=== PATIENT | male | born 1950 | race Caucasian/White ===

== ENCOUNTER 2019-10-07 07:53 | Inpatient (IN) | payer BC, MEDICARE, OTHER ==
[2019-10-07] MEDS ORDERED: Acetaminophen 325 MG TAB ONE (08:18)
[2019-10-07] MEDS ORDERED: cefTRIAXone\\ROCEPHIN 2 GM VIAL ONE (08:18)
[2019-10-07 08:19] LABS: #Basophils 0.3 thou/uL (0.0-0.2); #Monocytes 0.2 thou/uL (0.11-0.59); #Neutrophils 9.2 thou/uL (1.40-6.50); %Basophils 2.4 % (0.0-1.0); %Eosinophils 0.1 % (0.0-10.0); %Lymphocytes 9.4 % (21.0-51.0); %Monocytes 2.1 % (0.0-10.0); Mean Corpuscular HGB CONC 33.8 g/dL (32.0-36.0); Mean Corpuscular Hemoglobin 33.6 pg (27.0-31.0); Mean Corpuscular Volume 99.4 fL (78.0-98.0); Mean Platelet Volume 7.3 fL (7.4-10.4); Platelet Count 159 thou/uL (130-400); Red Blood Cell (RBC) Count 4.16 mill/uL (4.70-6.10); White Blood Cell (WBC) Count 10.7 thou/uL (4.8-10.8)
[2019-10-07 08:35] LABS: ALT (SGPT) 12 U/L (8-55); AST (SGOT) 13 U/L (5-34); Albumin 3.4 g/dL (3.4-4.8); Alkaline Phosphatase 79 U/L (40-110); Anion Gap 14 mmol/L (10-20); BUN (Urea Nitrogen) 22 mg/dL (8.4-25.7); Bilirubin, Total 1.8 mg/dL (0.2-1.2); Calc. Creatinine Clearance 0 mL/min (70-130); Calcium 8.1 mg/dL (7.8-10.44); Carbon Dioxide 21 mmol/L (23-31); Chloride 103 mmol/L (98-107); Estimated GFR-MDRD 80; Globulin 3.1 g/dL (2.4-3.5); Glucose 134 mg/dL (83-110); Potassium 3.5 mmol/L (3.5-5.1); Protein, Total 6.5 g/dL (5.8-8.1); Sodium 134 mmol/L (136-145)
--- NOTE | 2019-10-07 08:49 | RAD ---
Exam: Chest one view HISTORY:Fever. Urinary tract infection. Comparison: None FINDINGS: Pacemaker: Left-sided 3-lead defibrillator with lead positioned over the right atrium, right ventricl e and coronary sinus. Sternotomy wires are noted. Cardiac silhouette: Normal Aorta: Unremarkable Pulmonary vessels: Normal Costophrenic angles: Clear LUNGS: No masses or consolidation. Pneumothorax: None Osseous abnormalities: None IMPRESSION: No acute cardiopulmonary process.
[2019-10-07 08:52] LABS: Bilirubin Negative (Negative); Blood, Urine 3+ (Negative); Clarity Extra Turbid (Clear); Glucose, Urine (Dipstick) 500 mg/dL (Negative); Leukocyte 500 Leu/uL (Negative); Nitrite Negative (Negative); Protein, Urine (Dipstick) 100 mg/dL (Neg-Trace); RBC/HPF Greater than 50 HPF (0-3); Urobilinogen 6 mg/dL (Less than 2); WBC/HPF Greater than 50 HPF (0-3)
[2019-10-07 09:00] LABS: Squamous Epithelial 0-3 HPF (0-3)
[2019-10-07 09:01] LABS: Bacteria/HPF Rare-Few HPF (None Seen)
--- NOTE | 2019-10-07 10:07 | PDOC.FPRHP ---
- History of Present Illness Chief Complaint: Fever History of Present Illness: 69yo male with pmh of CVA with residual left sided weakness, IDDMII, HTN, HLD presents with fever, hyperglycemia, vomiting, dizziness, AMS since last night. Pt is accompanied by his son. Fever and dysuria started 1 wk ago. "Home doctor" came to his last night and diagnosed him with UTI and was started on Cipro. Hasn 't been taking a lot of his medications due to not feeling well and vomiting. Did receive insulin last night. Started as a "head cold" last week. Not on O2 at home but requiring O2 on here in ED. Lives alone, able to drive at baseline. More lethargic since yesterday. ED Course: Recieved 30ml/kg bolus, Ceftriaxone, Vanc, Tylenol EMS: 300ml bolus, and 8mg Zofran - Allergies/Adverse Reactions Allergies Allergy/AdvReac Type Severity Reaction Status Date / Time No Known Allergies Allergy Unverified 10/07/19 12:25 - History PMHx: CVA- residual left sided weakness, CHF, CABG, Insulin dependent DM, HLD PSHx: Cholecystectomy, 3v CABG FHx: Noncontributory Social: Denies alcohol, drug, tobacco use. Lives alone. - Review of Systems General: reports: fever/chills, weight/appetite/sleep changes, night sweats ENT: reports: nasal congestion, rhinorrhea Respiratory: reports: cough, congestion. denies: shortness of breath Cardiovascular: denies: chest pain Gastrointestinal: reports: nausea, vomiting. denies: diarrhea, abdominal pain Genitourinary: reports: dysuria Skin: denies: rashes, lesions Neurological: reports: weakness - Vital signs BP: Initially 60's/40's. Currently 135/79 HR: 107 RR: 21 Tmax: 103.7 Pox: 99% on 0.5L Wt: 73kg - Physical Exam Constitutional: NAD, well developed -Constitutional: lethargic but able to answer questions HEENT: normocephalic and atraumatic, PERRLA, conjunctiva clear, no scleral icterus, oropharynx clear -HEENT: Dry MM Neck: trachea midline Heart: RRR, no murmurs/rubs/gallops Lungs: CTAB, no respiratory distress, good air movement Abdomen: soft, non-tender -Abdomen: No CVA tenderness Rectal exam normal. No tenderness with palpation of prostate Musculoskeletal: normal structure, normal tone Neurological: no focal deficit Skin: no rash/lesions Heme/Lymphatic: no unusual bruising or bleeding Psychiatric: normal mood and affect, good judgment and insight, intact recent and remote memory FMR H&P: Results - Labs Result Diagrams: 10/07/19 07:50 10/07/19 07:50 Lab results: WBC 10.7 thou/uL (4.8-10.8) 10/07/19 07:50 Hgb 14.0 g/dL (14.0-18.0) 10/07/19 07:50 Hct 41.4 % (42.0-52.0) L 10/07/19 07:50 MCV 99.4 fL (78.0-98.0) H 10/07/19 07:50 Plt Count 159 thou/uL (130-400) 10/07/19 07:50 Neutrophils % 86.0 % (42.0-75.0) H 10/07/19 07:50 Sodium 134 mmol/L (136-145) L 10/07/19 07:50 Potassium 3.5 mmol/L (3.5-5.1) 10/07/19 07:50 Chloride 103 mmol/L (98-107) 10/07/19 07:50 Carbon Dioxide 21 mmol/L (23-31) L 10/07/19 07:50 BUN 22 mg/dL (8.4-25.7) 10/07/19 07:50 Creatinine 0.93 mg/dL (0.7-1.3) 10/07/19 07:50 Glucose 134 mg/dL (83-110) H 10/07/19 07:50 Lactic Acid 3.7 mmol/L (0.5-2.2) H 10/07/19 07:50 Calcium 8.1 mg/dL (7.8-10.44) 10/07/19 07:50 Total Bilirubin 1.8 mg/dL (0.2-1.2) H 10/07/19 07:50 AST 13 U/L (5-34) 10/07/19 07:50 ALT 12 U/L (8-55) 10/07/19 07:50 Alkaline Phosphatase 79 U/L (40-110) 10/07/19 07:50 Serum Total Protein 6.5 g/dL (5.8-8.1) 10/07/19 07:50 Albumin 3.4 g/dL (3.4-4.8) 10/07/19 07:50 Urine Ketones Negative mg/dL (Negative) 10/07/19 08:25 Urine Blood 3+ (Negative) A 10/07/19 08:25 Urine Nitrite Negative (Negative) 10/07/19 08:25 Ur Leukocyte Esterase 500 Matias/uL (Negative) A 10/07/19 08:25 Urine RBC Greater than 50 HPF (0-3) A 10/07/19 08:25 Urine WBC Greater than 50 HPF (0-3) A 10/07/19 08:25 Ur Squamous Epith Cells 0-3 HPF (0-3) 10/07/19 08:25 Urine Bacteria Rare-Few HPF (None Seen) 10/07/19 08:25 - Radiology Interpretation Chest x-ray Status: report reviewed by me Additional comment: No acute cardiopulm process CT scan - head Status: report reviewed by me Additional comment: No evidence of acute intracranial process FMR H&P: A/P - Plan 69yo male admitted for septic shock 2/2 UTI Septic Shock 2/2 UTI - Diagnosed with UTI yesterday and started on Cipro. Tmax 103.7. L, tachycardic , hypotensive. - s/p 30mg/kg bolus in ED - Blood and urine cx pending - Procal ordered - Ordered another 500ml as dry MM - Consulted Pulm, Dr Pearson and Gen surg Dr Raya for central line placement. Attempts at Left IJ and Femoral unsuccessful in ED. - S/p Vanc and Ceftriaxone in ED. Will continue Ceftriaxone and Levaquin - Admit to ICU Elevated Lactate - 3.7, ordered recheck H/o CVA with residual left sided weakness - PT/OT consulted CHF - Continue statin. Hold antihypertensives - Daily wt and strict I&O CABG x3v - Continue home meds. Hold antihypertensives DMII - Continue home insulin - Accuchecks q4h until no longer NPO. Hypoglycemic protocol HLD - Continue home meds Code Status: DNR DVT ppx: Xarelto GI ppx: Pepcid BID Lines: pending Gen surg to place central line IVF: LR @100 PCP: JODY STEVEN FMR H&P: Upper Level - Plan Date/Time: 10/07/19 1002 I, [], have evaluated this patient and agree with findings/plan as outlined by planner internship resident. Pertinent changes/additions are listed here.
--- NOTE | 2019-10-07 10:07 | CT ---
CT BRAIN WITHOUT CONTRAST: Date: 10/07/2019 HISTORY: Altered mental status. COMPARISON: None. FINDINGS: There are changes of cortical atrophy, chronic small vessel ischemic disease, and encephalomalacia in the cerebral hemispheres bilaterally, likely due to remote insult. The ventricular size is appropriate and the basilar cisterns are patent. No evidence of acute infarct, hemorrhage, midline shift, or abnormal extra-axial fluid collections ar e seen. The bony calvarium is intact. There is mucosal disease in the paranasal sinuses. There are sm all air fluid levels in the maxillary sinuses. IMPRESSION: No CT evidence of acute intracranial process. POS: OFF
[2019-10-07] MEDS ORDERED: Norepinephrine 8 MG/0.9% NS 250 ML ONE (10:11)
--- NOTE | 2019-10-07 12:02 | PDOC.OP ---
Operative Note - Operative Note Operative Note: INDICATION: Septic Shock RESIDENT: Megha Sandhu MD PGY-2 ATTENDING PHYSICIAN: Dr Grissom Ultrasound Used: Yes CONSENT: Due to emergent nature only oral consent was obtained prior to procedure. PROCEDURE SUMMARY: Surgical cap, mask with protective eyewear, sterile gown and sterile gloves were worn throughout the procedure. The patient was placed in Trendelenburg position. LEFT chest region was prepped using chlorhexidine scrub and draped in sterile fashion using a full drape and sterile probe cover employed. The medial and lateral heads of the sternocleidomastoid muscle were identified as was the carotid pulse. The Internal Jugular vein was identified using the ultrasound. Anesthesia was achieved over the vein using 1% lidocaine. Using real-time out of plane guidance , the introducer needle was inserted into the Internal Jugular vein under direct ultrasound visualization. Venous blood was withdrawn. The syringe was removed and a guidewire was advanced into the introducer needle however it was unable to pass smoothly. Despite multiple attempts at passing the guidewire this was unsuccessful and procedure was terminated. Estimated blood loss is 20ml. The LEFT inguinal region was prepped using chlorhexidine scrub and draped in sterile fashion using a full drape and sterile probe cover employed. The femoral pulse was identified. Anesthesia was achieved using 1% lidocaine. Palpating the femoral pulse throughout the procedure, the introducer needle was inserted medial to the femoral artery, inferior to the inguinal crease and into the femoral vein. Venous blood was withdrawn. The syringe was removed and a guidewire was unable to pass smoothly. Several more attempts were made with the same result. Procedure was terminated. Patient tolerated procedure well. Estimated blood loss is 40ml. Surgery was consulted for central line placement.
[2019-10-07 12:44] LABS: Lactic Acid 1.2 mmol/L (0.5-2.2)
--- NOTE | 2019-10-07 13:22 | RAD ---
CHEST 1 VIEW: Date: 10/07/2019 HISTORY: Central line catheter placement. COMPARISON: 10/07/2019. FINDINGS: Postop midline sternotomy and left ICD. Right subclavian catheter has been placed. No pneumothorax or pleural effusion. IMPRESSION: Right subclavian catheter placement in satisfactory location without complication. POS: TPC
[2019-10-07] MEDS ORDERED: Dextrose 50% Abboject 50 ML SYRINGE SLOW IVP PRN (13:39)
[2019-10-07] MEDS ORDERED: Dextrose 5% in Water 1,000 ML IV PRN (13:39)
[2019-10-07] MEDS ORDERED: CCU Electrolyte Replacement 1 EACH IVPB ONE (13:39)
[2019-10-07] MEDS ORDERED: Norepinephrine 8 MG/0.9% NS 250 ML IVPB PRN (13:39)
[2019-10-07] MEDS ORDERED: PHOS-NAK 1 PKT PACK PO PRN ×2 (13:41)
[2019-10-07] MEDS ORDERED: CCU ELECTROLYTE REPLACEMENT PROTOCOL FS PRN (13:41)
[2019-10-07] MEDS ORDERED: Potassium Chloride 20 MEQ TAB PO PRN (13:41)
[2019-10-07] MEDS ORDERED: Potassium Phosphate 15 MMOL in Sodium Chloride 0.9% 250 ML 250 ML IV PRN (13:41)
[2019-10-07] MEDS ORDERED: Potassium Chloride 40 MEQ in Premix Bag 1 BAG IVPB PRN (13:41)
[2019-10-07] MEDS ORDERED: Magnesium Oxide 400 MG TAB PO PRN ×2 (13:41)
[2019-10-07] MEDS ORDERED: Potassium Phosphate 12 MMOL in Sodium Chloride 0.9% 250 ML 250 ML IV PRN (13:41)
[2019-10-07] MEDS ORDERED: Potassium Chloride 40 MEQ in Sodium Chloride 0.9% 250 ML 250 ML IVPB PRN (13:41)
[2019-10-07] MEDS ORDERED: Magnesium 2 GM/50 ML 2 GM in Premix Bag 1 BAG IVPB PRN (13:41)
[2019-10-07] MEDS ORDERED: Potassium Phosphate 9 MMOL in Sodium Chloride 0.9% 100 ML IVPB PRN (13:41)
[2019-10-07] MEDS: Lactated Ringer's 1,000 ML IV SCH ×2 (13:48→23:49)
[2019-10-07] MEDS ORDERED: Albumin 25% 25 GM/100 ML BOT IVPB SCH (14:37)
--- NOTE | 2019-10-07 15:28 | CON ---
DATE OF CONSULTATION: HISTORY OF PRESENT ILLNESS: Wallace Gan is a 69-year-old gentleman, who lives in [facility] and apparently home physician visited him, altered mental status, uncontrolled diabetes, fever up to 103, chills, unable to keep anything or food down. It is felt he had UTIs, transferred to the hospital where he was hypotensive. He was started on some Levophed and fluids, now in the ICU, reason for consult. The patient is awake, alert, and responsive. In fact, his son is present at the bedside, who gives additional information. Normally, he seeks care at the [facility]. He has since in the ER received vancomycin and ceftriaxone. PAST MEDICAL HISTORY: 1. Diabetes. 2. Hyperlipidemia. 3. High cholesterol. 4. CHF. 5. Previous CABG. 6. Previous cerebrovascular accident and left-sided weakness. PAST SURGICAL HISTORY: 1. AICD. 2. Bypass. 3. Gallbladder. HOME MEDICATIONS: 1. Coreg 6.25. 2. Metoprolol 100. 3. Zetia 10. 4. Lantus 30 units once a day. 5. Victoza. 6. Crestor 5. 7. CQ 10. 8. Aspirin. 9. Multivitamins. 10. B12 once a day. 11. Entresto. 12. Xarelto 20. 13. . ALLERGIES: NONE. SOCIAL HISTORY: Tobacco, none. Alcohol, none. REVIEW OF SYSTEMS: Otherwise negative. PHYSICAL EXAMINATION: GENERAL: He is awake, alert, responsive. VITAL SIGNS: Blood pressure 100/60, pulse 87, saturations 96%, respirations 18. Denies any pain or discomfort. CHEST: No wheezing or crackles. CARDIAC: Normal S1 and S2. No gallops. ABDOMEN: No masses. NEUROLOGIC: He is awake, alert, responsive. Moves all 4 extremities. LABORATORY DATA: White count 10,000, hemoglobin and hematocrit unremarkable, platelet count is normal. Renal function is normal. Glucose is slightly elevated. Urine shows WBC greater than 50. IMPRESSION: 1. Hypertension. 2. Urosepsis. 3. Congestive heart failure. 4. Diabetes. PLAN: I agree with the present treatment Rocephin. Deescalate once we get all cultures back. Accu-Chek. Sliding scale is ordered. Baseline cortisol level. TIME SPENT: This is a consultation note of 70 minutes, 50% in direct patient care. Job ID: [id number]
--- NOTE | 2019-10-07 16:22 | HP ---
I have discussed the case with Dr. Megha Sandhu and agree with her assessment and plan. Mr. Gan is a pleasant 69-year-old man who for the last week has had intermittent fever, chills, and vomiting. He had also developed within the last 48 hours of burning on urination and urinary frequency as well as nocturia. He was seen at home by a home health visit yesterday and was told that he had a urinary tract infection. He continued to feel poorly, however, with fever, chills, and presented to our ER on the morning of 10/07/2019. time to have urinary tract infection. He became hypotensive requiring fluid boluses as well as a Levophed infusion. PHYSICAL EXAMINATION: GENERAL: He is awake, alert, in no distress. EAR, NOSE, AND THROAT: Mucous membranes are dry. No erythema noted. NECK: Supple. CARDIAC: Heart rhythm is regular with an S4 gallop. No murmur or rub noted. LUNGS: Clear, though diminished. No rales, wheezes. No use of accessory muscles. ABDOMEN: Flat and soft without guarding, rebound, or rigidity. NEUROLOGIC: No focal deficits. LABORATORY DATA: CBC; white count is 10,700, hemoglobin 14, hematocrit 41.4 with an MCV of 99. Chemistry; sodium 134, potassium 3.5, chloride 103, bicarb 21, BUN 22, creatinine 0.93, and glucose is 134. Lactic acid is elevated at 3.7. Urinalysis, nitrites negative, leukocyte esterase positive at 500, urine WBCs greater than 50, urine RBCs greater than 50. ASSESSMENT: Acute urinary tract infection with sepsis and septic shock, responding to fluids and pressors. PLAN: Admit to ICU, continue fluids and pressors. Begin broad-spectrum antibiotics. Awaiting results of cultures. Job ID: [id number]
--- NOTE | 2019-10-07 16:42 | OP ---
DATE OF PROCEDURE: 10/07/2019 PREOPERATIVE DIAGNOSIS: Acute septicemia. POSTOPERATIVE DIAGNOSIS: Acute septicemia. PROCEDURE PERFORMED: Placement of right subclavian central venous catheter. INDICATIONS FOR PROCEDURE: A 69-year-old man admitted with acute septic shock requiring central venous access for therapeutic interventions. I was asked to place a central venous catheter for that purpose. DESCRIPTION OF PROCEDURE: Informed consent was obtained from the patient and his son. The patient was placed in supine position. The right chest wall was sterilely prepped and draped in usual fashion. Skin below the right clavicle was anesthetized with 1% lidocaine. The right subclavian vein was cannulated with an 18-gauge introducer needle, returning dark venous blood. Guidewire was passed through the needle and advanced to the right subclavian vein without resistance. The needle was withdrawn over the guidewire. A stab incision was made adjacent to the guidewire using 11 scalpel. Dilator was passed over the guidewire dilating the subcutaneous tissues. Dilator was removed and a triple-lumen central venous catheter was advanced over the guidewire and placed in the right subclavian vein without resistance and stopping at the 15 cm yash. Guidewire was removed. Dark venous blood was aspirated from all 3 ports, which were individually flushed with saline. The catheter was secured to anterior chest wall using 3-0 silk suture at two points. Biopatch and sterile dressings were applied. The patient tolerated this procedure without any apparent complications. Chest x-ray obtained reveals proper placement and no pneumothorax present. Job ID: [id number]
[2019-10-07] MEDS: Famotidine/PF 20 mg/2ml Vial SLOW IVP SCH (20:02)
[2019-10-07] MEDS: Rivaroxaban 10 MG TAB PO SCH (20:02)
[2019-10-07] MEDS: Ondansetron PF 4 MG/2 ML Vial IVP PRN (23:49)
[2019-10-08] MEDS ORDERED: Melatonin 3 MG TAB PO SCH (00:45)
[2019-10-08 05:25] LABS: ALT (SGPT) 11 U/L (8-55); AST (SGOT) 15 U/L (5-34); Albumin 2.7 g/dL (3.4-4.8); Alkaline Phosphatase 63 U/L (40-110); Anion Gap 8 mmol/L (10-20); BUN (Urea Nitrogen) 16 mg/dL (8.4-25.7); Bilirubin, Total 0.8 mg/dL (0.2-1.2); Calc. Creatinine Clearance 93 mL/min (70-130); Calcium 7.4 mg/dL (7.8-10.44); Carbon Dioxide 25 mmol/L (23-31); Chloride 104 mmol/L (98-107); Estimated GFR-MDRD Greater than 90; Globulin 2.7 g/dL (2.4-3.5); Glucose 112 mg/dL (83-110); Potassium 3.3 mmol/L (3.5-5.1); Protein, Total 5.4 g/dL (5.8-8.1); Sodium 134 mmol/L (136-145)
[2019-10-08 05:48] LABS: Band 5 % (5-11); Hemoglobin 11.6 g/dL (14.0-18.0); Lymphocytes 12 % (21-51); MDiff Complete? YES; Mean Corpuscular HGB CONC 33.6 g/dL (32.0-36.0); Mean Corpuscular Hemoglobin 33.4 pg (27.0-31.0); Mean Corpuscular Volume 99.3 fL (78.0-98.0); Mean Platelet Volume 7.3 fL (7.4-10.4); Monocytes 8 % (0-10); Neutrophil 75 % (42-75); Platelet Count 130 thou/uL (130-400); RBC Distribution Width 10.9 % (11.5-14.5); Red Blood Cell (RBC) Count 3.47 mill/uL (4.70-6.10); White Blood Cell (WBC) Count 8.9 thou/uL (4.8-10.8)
--- NOTE | 2019-10-08 06:43 | PDOC.FM ---
- Subjective Subjective: pt is resting comfortably, he complains of intermittent nausea but nothing else , no fever/chills, no sob no cp. - Objective Vital Signs & Weight: Vital Signs (12 hours) Temp Pulse Ox 10/08/19 04:00 100.2 F H 10/08/19 00:00 99.7 F H 10/07/19 20:00 99.1 F 94 L Weight Weight 75 kg Most Recent Monitor Data Heart Rate from ECG 97 NIBP 145/87 NIBP BP-Mean 106 Respiration from ECG 16 SpO2 97 I&O: 10/06/19 10/07/19 10/08/19 06:59 06:59 06:59 Intake Total 2152 Output Total 1576 Balance 576 Result Diagrams: 10/08/19 04:45 10/08/19 04:45 Phys Exam - Physical Examination Constitutional: NAD HEENT: moist MMs, sclera anicteric Neck: no JVD, supple Respiratory: no wheezing, clear to auscultation bilateral Cardiovascular: RRR, no significant murmur Gastrointestinal: soft, non-tender Musculoskeletal: no edema, pulses present Neurological: normal sensation, moves all 4 limbs Psychiatric: normal affect, A&O x 3 Skin: no rash, normal turgor Dx/Plan (1) Septic shock Code(s): A41.9 - SEPSIS, UNSPECIFIED ORGANISM; R65.21 - SEVERE SEPSIS WITH SEPTIC SHOCK Status: Acute (2) CHF (congestive heart failure) Code(s): I50.9 - HEART FAILURE, UNSPECIFIED Status: Acute (3) History of CVA (cerebrovascular accident) Code(s): Z86.73 - PRSNL HX OF TIA (TIA), AND CEREB INFRC W/O RESID DEFICITS Status: Acute (4) HTN (hypertension) Code(s): I10 - ESSENTIAL (PRIMARY) HYPERTENSION Status: Acute - Plan Plan: 69yo male admitted for septic shock 2/2 UTI Septic Shock 2/2 UTI A- improved overall. shock is resolved, pt is off pressors. Blood and urine cx pending. procal elevated at 10, Lactic acidosis resolved. P- continue Rocephin and levaquin -f/u UCx and BCx, will then de-escalate ABX -continue IVF -likely transfer to floor today Elevated Lactate -resolved H/o CVA with residual left sided weakness -PT/OT consulted CHF -Continue statin. Hold antihypertensives, Daily wt and strict I&O CABG x3v -Continue home meds. Hold antihypertensives DMII -Continue home insulin, Accuchecks q4h until no longer NPO. Hypoglycemic protocol HLD -Continue home meds Code Status: DNR DVT ppx: Xarelto GI ppx: Pepcid BID Lines: R subclavian IVF: LR @100 PCP: JODY STEVEN
[2019-10-08] MEDS: Ondansetron PF 4 MG/2 ML Vial IVP PRN (06:49)
[2019-10-08] MEDS: cefTRIAXone\\ROCEPHIN 1 GM in Sodium Chloride 0.9% 100 ML IVPB SCH (07:58)
[2019-10-08] MEDS: Famotidine/PF 20 mg/2ml Vial SLOW IVP SCH ×2 (08:02→20:37)
[2019-10-08] MEDS: Ezetimibe 10 MG TAB PO SCH (08:02)
[2019-10-08] MEDS: Multivit, Therapeutic 1 TAB PO SCH (08:03)
[2019-10-08] MEDS: Aspirin Chewable 81 MG TAB PO SCH (08:03)
[2019-10-08] MEDS: Ubidecarenone 50 MG CAP PO SCH (08:04)
[2019-10-08] MEDS: Cyanocobalamin (Vitamin B-12) 1,000 MCG TAB PO SCH (08:04)
--- NOTE | 2019-10-08 09:09 | PRG ---
DATE OF SERVICE: 10/08/2019 SUBJECTIVE: This morning, he is awake, alert, responsive, no longer in distress. No abdominal pain. Hypertension resolved. OBJECTIVE: VITAL SIGNS: Temperature 99, blood pressure 132/78, pulse 100, respiratory rate 18, and sats 96%. CHEST: Decreased breath sounds. No wheezing. CARDIAC: Normal S1-S2. No gallops. ABDOMEN: No masses. LABORATORY DATA: White count is unremarkable, slight left shift. Lytes are normal. Sodium 134. IMPRESSION: Sepsis syndrome, probably urinary tract infection, advanced age. PLAN: Stable enough to be transferred out of the ICU. Continue supportive care, PT. Once we have final identification, de-escalate antibiotics. Job ID: [id number]
[2019-10-08] MEDS: Rosuvastatin 5 MG TAB PO SCH (10:04)
[2019-10-08] MEDS: HumaLOG 300 UNITS/3 ML VIAL SC PRN ×2 (11:31→20:41)
--- NOTE | 2019-10-08 12:31 | PRG ---
DATE OF SERVICE: 10/08/2019 ADDENDUM: Addendum to the note of Dr. Eder Christiansen. Mr. Gan is doing very well this morning. He only ran a low-grade fever in the early education teacher of 100.4. He looks and feels much better. So far, his urine culture is no growth at 24 hours and blood cultures are no growth to date. He is currently on ceftriaxone and Levaquin. He is off the Levophed infusion and stable for transfer to the regular medical floor, where we will continue the IV antibiotics until cultures are shown to be negative within the next 24 to 48 hours. Job ID: [id number]
[2019-10-08] MEDS: Acetaminophen 325 MG TAB PO PRN ×2 (15:33→20:38)
[2019-10-08] MEDS: Lactated Ringer's 1,000 ML IV SCH (17:13)
[2019-10-08] MEDS: Rivaroxaban 10 MG TAB PO SCH (20:37)
[2019-10-08] MEDS: VICTOZA SC SCH (20:39)
[2019-10-08] MEDS: Melatonin 3 MG TAB PO PRN (21:23)
[2019-10-09] MEDS: Acetaminophen 325 MG TAB PO PRN ×2 (04:36→18:02)
[2019-10-09] MEDS: HumaLOG 300 UNITS/3 ML VIAL SC PRN ×2 (06:07→13:00)
[2019-10-09 06:46] LABS: ALT (SGPT) 15 U/L (8-55); AST (SGOT) 23 U/L (5-34); Alkaline Phosphatase 78 U/L (40-110); Anion Gap 12 mmol/L (10-20); BUN (Urea Nitrogen) 14 mg/dL (8.4-25.7); Bilirubin, Total 0.9 mg/dL (0.2-1.2); Calc. Creatinine Clearance 89 mL/min (70-130); Calcium 7.9 mg/dL (7.8-10.44); Carbon Dioxide 24 mmol/L (23-31); Chloride 100 mmol/L (98-107); Estimated GFR-MDRD Greater than 90; Globulin 2.8 g/dL (2.4-3.5); Glucose 176 mg/dL (83-110); Potassium 3.8 mmol/L (3.5-5.1); Protein, Total 5.8 g/dL (5.8-8.1); Sodium 132 mmol/L (136-145)
--- NOTE | 2019-10-09 06:53 | PDOC.FM ---
- Subjective Subjective: Fever 102.1 overnight, feels hot with chills. Tachycardic. Reports severe diffuse weakness to the point he is unable to feed himself, which he can normally do at home. Reports sore throat this morning. - Objective MAR Reviewed: Yes Vital Signs & Weight: Vital Signs (12 hours) Temp Pulse Resp BP Pulse Ox 10/09/19 05:45 98.5 F 105 H 18 155/90 H 95 10/09/19 04:23 102.1 F H 111 H 16 168/97 H 92 L 10/09/19 00:00 18 10/08/19 20:35 93 L 10/08/19 19:24 98.6 F 71 18 117/70 93 L Weight Admit Weight 74.843 kg Weight 75.75 kg Most Recent Monitor Data Heart Rate from ECG 107 NIBP 131/81 NIBP BP-Mean 97 Respiration from ECG 28 SpO2 99 I&O: 10/07/19 10/08/19 10/09/19 06:59 06:59 06:59 Intake Total 2152 1959 Output Total 1576 1402 Balance 576 557 Result Diagrams: 10/09/19 05:51 10/09/19 05:51 Phys Exam - Physical Examination Constitutional: NAD HEENT: moist MMs, oral pharynx no lesions Neck: supple Respiratory: no wheezing, clear to auscultation bilateral Cardiovascular: RRR, no significant murmur Gastrointestinal: soft, non-tender Musculoskeletal: no edema Neurological: moves all 4 limbs Psychiatric: normal affect, A&O x 3 Skin: normal turgor Dx/Plan - Plan Plan: 69yo male admitted for septic shock 2/2 UTI Septic Shock 2/2 UTI - improved overall. shock is resolved, pt is off pressors. Blood and urine cx pending. procal elevated at 10, Lactic acidosis resolved. - Continue Rocephin and levaquin - UCx and BCx, will then de-escalate ABX - Continue IVF Deconditioning - Rehab consult, recommended by PT H/o CVA with residual left sided weakness - PT/OT consulted CHF -Continue statin. Hold antihypertensives, Daily wt and strict I&O CABG x3v -Continue home meds. Hold antihypertensives DMII -Continue home insulin, Accuchecks q4h until no longer NPO. Hypoglycemic protocol HLD -Continue home meds Code Status: DNR DVT ppx: Xarelto GI ppx: Pepcid BID Lines: R subclavian IVF: LR @100 PCP: JODY STEVEN Addendum - Attending - Attending Attestation Date/Time: 10/09/19 1102 I personally evaluated the patient and discussed the management with Dr. Sandhu I agree with the History, Examination, Assessment and Plan documented above with any addition or exceptions noted below. remains slightly tachycardic. Will fluid bolus 1L LR. D/c rocephin and continue IV levaquin. Culture negative to date. If remains negative will empirically treat with 4 wk levaquin. rehab screen placed today. Anticipate discharge in the next 24-48 hours.
[2019-10-09 08:02] LABS: Band 10 % (5-11); Hemoglobin 12.5 g/dL (14.0-18.0); Lymphocytes 10 % (21-51); MDiff Complete? YES; Macrocytosis SLIGHT = 6-15 cells (100X) (0-5/hpf); Mean Corpuscular HGB CONC 35.4 g/dL (32.0-36.0); Mean Corpuscular Hemoglobin 35.1 pg (27.0-31.0); Mean Platelet Volume 7.3 fL (7.4-10.4); Monocytes 7 % (0-10); Neutrophil 73 % (42-75); Platelet Count 138 thou/uL (130-400); Platelet Morphology Comment Appears Adequate; RBC Distribution Width 10.9 % (11.5-14.5); Red Blood Cell (RBC) Count 3.56 mill/uL (4.70-6.10); White Blood Cell (WBC) Count 6.2 thou/uL (4.8-10.8)
[2019-10-09] MEDS ORDERED: Guaifenesin DM 100-10/5 ML UDCUP PO PRN (08:26)
[2019-10-09] MEDS ORDERED: Guaifenesin DM 100-10/5 ML UDCUP PO SCH (08:30)
[2019-10-09] MEDS: Ubidecarenone 50 MG CAP PO SCH (08:49)
[2019-10-09] MEDS: cefTRIAXone\\ROCEPHIN 1 GM in Sodium Chloride 0.9% 100 ML IVPB SCH (08:49)
[2019-10-09] MEDS: Ezetimibe 10 MG TAB PO SCH (08:49)
[2019-10-09] MEDS: Rosuvastatin 5 MG TAB PO SCH (08:49)
[2019-10-09] MEDS: Aspirin Chewable 81 MG TAB PO SCH (08:50)
[2019-10-09] MEDS: Famotidine/PF 20 mg/2ml Vial SLOW IVP SCH ×2 (08:50→20:42)
[2019-10-09] MEDS: Multivit, Therapeutic 1 TAB PO SCH (08:50)
[2019-10-09] MEDS: Cyanocobalamin (Vitamin B-12) 1,000 MCG TAB PO SCH (08:50)
[2019-10-09] MEDS ORDERED: Lactated Ringer's 1,000 ML IV SCH (10:45)
[2019-10-09] MEDS: Ondansetron PF 4 MG/2 ML Vial IVP PRN (18:10)
[2019-10-09] MEDS: Rivaroxaban 10 MG TAB PO SCH (20:41)
[2019-10-09] MEDS: VICTOZA SC SCH (20:42)
[2019-10-10 06:11] LABS: ALT (SGPT) 21 U/L (8-55); AST (SGOT) 30 U/L (5-34); Albumin 3.1 g/dL (3.4-4.8); Alkaline Phosphatase 93 U/L (40-110); Anion Gap 11 mmol/L (10-20); BUN (Urea Nitrogen) 10 mg/dL (8.4-25.7); Bilirubin, Total 0.8 mg/dL (0.2-1.2); Calc. Creatinine Clearance 88 mL/min (70-130); Calcium 8.3 mg/dL (7.8-10.44); Carbon Dioxide 26 mmol/L (23-31); Chloride 99 mmol/L (98-107); Estimated GFR-MDRD Greater than 90; Glucose 144 mg/dL (83-110); Protein, Total 6.1 g/dL (5.8-8.1); Sodium 132 mmol/L (136-145)
[2019-10-10 06:28] LABS: Band 10 % (5-11); Eosinophils 4 % (0-10); Hemoglobin 12.7 g/dL (14.0-18.0); Lymphocytes 22 % (21-51); MDiff Complete? YES; Mean Corpuscular HGB CONC 34.3 g/dL (32.0-36.0); Mean Corpuscular Hemoglobin 33.9 pg (27.0-31.0); Mean Platelet Volume 7.4 fL (7.4-10.4); Monocytes 8 % (0-10); Neutrophil 56 % (42-75); Platelet Count 143 thou/uL (130-400); RBC Distribution Width 10.9 % (11.5-14.5); Red Blood Cell (RBC) Count 3.76 mill/uL (4.70-6.10); White Blood Cell (WBC) Count 6.9 thou/uL (4.8-10.8)
--- NOTE | 2019-10-10 06:59 | PDOC.FM ---
- Subjective Subjective: No overnight events. Feeling nauseated this morning. Did not eat dinner. Has only eaten justino crackers this morning. PT was unable to work with him yesterday to dizziness and low BP. This improved with 1L LR bolus. His BP is stable today. Continues to have diffuse weakness. Reports chills this AM. - Objective MAR Reviewed: Yes Vital Signs & Weight: Vital Signs (12 hours) Temp Pulse Resp BP Pulse Ox 10/09/19 19:29 99.5 F 100 18 159/82 H 95 Weight Admit Weight 74.843 kg Weight 74.298 kg Most Recent Monitor Data Heart Rate from ECG 107 NIBP 131/81 NIBP BP-Mean 97 Respiration from ECG 28 SpO2 99 I&O: 10/08/19 10/09/19 10/10/19 06:59 06:59 06:59 Intake Total 2152 1959 Output Total 1576 1402 Balance 576 557 Result Diagrams: 10/10/19 05:28 10/10/19 05:28 Phys Exam - Physical Examination Constitutional: NAD HEENT: moist MMs Neck: supple Respiratory: no wheezing, clear to auscultation bilateral Cardiovascular: RRR, no significant murmur Gastrointestinal: soft, non-tender Musculoskeletal: no edema Neurological: moves all 4 limbs Psychiatric: normal affect, A&O x 3 Skin: normal turgor Dx/Plan - Plan Plan: 69yo male admitted for septic shock Septic Shock 2/2 Prostatitis - Shock resolved. Procal appropriately decreasing - Continue levaquin for total 1 month course - UCx and BCx NGTD - Remove central line today Deconditioning - Rehab consult, recommended by PT - IS ordered H/o CVA with residual left sided weakness - PT/OT consulted CHF -Continue statin. - Hold antihypertensives, Daily wt and strict I&O CABG x3v - Continue home meds. Hold antihypertensives DMII - Continue home insulin - ACHS accuchecks. CC diet. Hypoglycemic protocol HLD - Continue home meds Code Status: DNR DVT ppx: Xarelto GI ppx: Pepcid BID PCP: [facility] Addendum - Attending - Attending Attestation Date/Time: 10/10/19 1013 I personally evaluated the patient and discussed the management with Dr. Sandhu. I agree with the History, Examination, Assessment and Plan documented above with any addition or exceptions noted below. Switch to PO levaquin 500 mg QD and will treat for 28 total days. Placement pending at this time. otherwise ready for d/c. Pulse and BP improved with IV fluids.
[2019-10-10] MEDS: Ubidecarenone 50 MG CAP PO SCH (08:35)
[2019-10-10] MEDS: Famotidine/PF 20 mg/2ml Vial SLOW IVP SCH (08:36)
[2019-10-10] MEDS: Rosuvastatin 5 MG TAB PO SCH (08:36)
[2019-10-10] MEDS: Ezetimibe 10 MG TAB PO SCH (08:36)
[2019-10-10] MEDS: Aspirin Chewable 81 MG TAB PO SCH (08:36)
[2019-10-10] MEDS: Cyanocobalamin (Vitamin B-12) 1,000 MCG TAB PO SCH (08:36)
[2019-10-10] MEDS: Multivit, Therapeutic 1 TAB PO SCH (08:36)
[2019-10-10 14:10] VITALS: BMI 22.8
[2019-10-10] MEDS: HumaLOG 300 UNITS/3 ML VIAL SC PRN (17:34)
[2019-10-10] MEDS: Rivaroxaban 10 MG TAB PO SCH (20:27)
[2019-10-10] MEDS: VICTOZA SC SCH (20:27)
[2019-10-10] MEDS: Melatonin 3 MG TAB PO PRN (20:29)
[2019-10-10] MEDS: Acetaminophen 325 MG TAB PO PRN (20:29)
[2019-10-10] MEDS: Ondansetron PF 4 MG/2 ML Vial IVP PRN (20:34)
--- NOTE | 2019-10-11 07:00 | PDOC.FM ---
- Subjective Subjective: Weakness is slightly improved. No overnight events. Denies fever, chills. Reports good appetite. - Objective MAR Reviewed: Yes Vital Signs & Weight: Vital Signs (12 hours) Temp Pulse Resp BP Pulse Ox 10/10/19 20:00 98.5 F 102 H 16 119/74 95 Weight Admit Weight 74.843 kg Weight 72.938 kg Most Recent Monitor Data Heart Rate from ECG 107 NIBP 131/81 NIBP BP-Mean 97 Respiration from ECG 28 SpO2 99 Result Diagrams: 10/10/19 05:28 10/10/19 05:28 Phys Exam - Physical Examination Constitutional: NAD Sitting eating breakfast HEENT: moist MMs Neck: supple Respiratory: no wheezing, clear to auscultation bilateral Cardiovascular: RRR, no significant murmur Gastrointestinal: soft, non-tender Musculoskeletal: no edema Neurological: moves all 4 limbs Psychiatric: normal affect, A&O x 3 Skin: normal turgor Dx/Plan - Plan Plan: 69yo male admitted for septic shock Prostatitis - Continue levaquin for total 1 month course - UCx and BCx NGTD Deconditioning - Awaiting rehab approval by [place] Code Status: DNR DVT ppx: Jake PCP: [facility]- [place] Addendum - Attending - Attending Attestation Date/Time: 10/11/19 1021 I personally evaluated the patient and discussed the management with Dr. Sandhu I agree with the History, Examination, Assessment and Plan documented above with any addition or exceptions noted below. Restarting home insulin and beta joie. awaiting placement.
[2019-10-11] MEDS: Multivit, Therapeutic 1 TAB PO SCH (08:24)
[2019-10-11] MEDS: Ezetimibe 10 MG TAB PO SCH (08:24)
[2019-10-11] MEDS: Cyanocobalamin (Vitamin B-12) 1,000 MCG TAB PO SCH (08:24)
[2019-10-11] MEDS: Aspirin Chewable 81 MG TAB PO SCH (08:24)
[2019-10-11] MEDS: Ubidecarenone 50 MG CAP PO SCH (08:24)
[2019-10-11] MEDS: Rosuvastatin 5 MG TAB PO SCH (08:32)
[2019-10-11] MEDS ORDERED: Carvedilol 6.25 MG TAB PO SCH (15:00)
[2019-10-11 19:24] VITALS: BP 156/78; TEMP 97.5
[2019-10-12] MEDS ORDERED: Non-Formulary Item 1 EACH (Insulin Detemir [Levemir] 30 UNIT) SC SCH (09:00)
[2019-10-12] MEDS ORDERED: Insulin Glargine 30 UNITS in Pre-Filled Syringe 1 EACH SC SCH (09:00)
--- NOTE | 2019-10-14 10:16 | DIS ---
DATE OF ADMISSION: 10/07/2019 DATE OF DISCHARGE: 10/11/2019 RESIDENT: Megha Sandhu, PGY-2. ADMITTING ATTENDING: Mihai Foote MD DISCHARGE ATTENDING: Son Vicente MD. CONSULTS: Pulmonology. PROCEDURES: 1. Chest x-ray on 10/07/2019, right subclavian catheter placement in satisfactory location without complication. 2. Chest x-ray on 10/07/2019, no acute cardiopulmonary process. 3. Brain CT on 10/07/2019, no CT evidence of acute intracranial process. 4. Central line placement, right subclavian. PRIMARY DIAGNOSES: 1. Septic shock secondary to prostatitis, resolved. 2. Prostatitis. 3. Deconditioning. SECONDARY DIAGNOSES: 1. History of cerebrovascular accident with residual left-sided weakness. 2. Congestive heart failure. 3. CABG x3 vessel. 4. Type 2 diabetes. 5. Hyperlipidemia. DISCHARGE MEDICATIONS: 1. Aspirin 81 mg daily. 2. Coreg 6.25 mg t.i.d. 3. Vitamin D3 of 2000 units q.a.m. 4. Zetia 10 mg q.a.m. 5. Levaquin 500 mg x30 tablets. 6. Metoprolol 100 mg at bedtime. 7. Multivitamin one capsule daily. 8. Xarelto 20 mg at bedtime. 9. Crestor 2.5 mg q.a.m. 10. CoQ10 of 100 mg q.a.m. 11. Liraglutide 1.2 mg subcu q.a.m. 12. Phenergan 25 mg p.r.n. 13. Entresto one tablet b.i.d. DISCONTINUED MEDICATIONS: Cipro. HISTORY OF PRESENT ILLNESS/HOSPITAL COURSE: Mr. Gan is a 69-year-old male who presented with fever, hyperglycemia, vomiting, dizziness, and altered mental status. He had recently been diagnosed with UTI and was started on Cipro without improvement. In the ER, he had a UA that was consistent with infection. He received 30 mL/kg bolus of ceftriaxone, vancomycin, and Tylenol. In the ambulance, he received 300 mL bolus and 8 mg of Zofran. His vital signs were initially stable, however, he became hypotensive despite bolus and tachycardic. Lowest recorded BP 60s/40s, heart rate low 100, T-max 103.7. He was requiring small amount of oxygen via nasal cannula. A central line was placed and he was started on Levophed. He was admitted to the ICU and Pulmonology was consulted. Initial labs; white blood cell count normal 10.7. Lactic acid 3.7, 1.2 at discharge. Total bilirubin 1.8. Procalcitonin 9.72 and 3.43 on 10/10. Normal a.m. cortisol. Total bilirubin at discharge 0.8. Urine culture, no growth at 48 hours. Influenza A and B positive. He had a normal prostate exam at admission. With antibiotics and fluids, he was able to wean from Levophed and was transferred to the medical unit. At baseline, he is very functional and able to do all of his own ADLs and drive, however, he was unable to even feed himself while in the hospital due to the weakness associated with the infection. PT and OT were consulted. They both recommended rehab placement, this was approved and he was discharged to rehab. Due to the septic shock he experienced, he will be treated for prostatitis with Levaquin for one month. DISPOSITION: Stable. DISCHARGE INSTRUCTIONS: 1. Location: [facility]. 2. Activity: With assist. 3. Diet: Carb consistent. 4. Follow up with PCP at the [facility]. Job ID: [id number]
== END 2019-10-11 19:20 | DRG 871 ==
LOC: ERS 07:53 → CCU 11:39 → T4-B 10-08 15:01
PROVIDERS: ADMIT Family Medicine; ATTEND Family Medicine
PROC: 3E043XZ Introduction of Vasopressor into Central Vein, Percutaneous Approach (ICD-10-PCS; principal; 2019-10-07)
PROC: 06HY33Z Insertion of Infusion Device into Lower Vein, Percutaneous Approach (ICD-10-PCS; 2019-10-07)
PROC: 05JY3ZZ Inspection of Upper Vein, Percutaneous Approach (ICD-10-PCS; 2019-10-07)
PROC: 05H533Z Insertion of Infusion Device into Right Subclavian Vein, Percutaneous Approach (ICD-10-PCS; 2019-10-07)
DX: A41.9 Sepsis, unspecified organism (principal); R65.21 Severe sepsis with septic shock; I69.354 Hemiplegia and hemiparesis following cerebral infarction affecting left non-dominant side; E87.2 Acidosis; Z66 Do not resuscitate; E78.5 Hyperlipidemia, unspecified; E11.65 Type 2 diabetes mellitus with hyperglycemia; I50.9 Heart failure, unspecified; I11.0 Hypertensive heart disease with heart failure; N41.9 Inflammatory disease of prostate, unspecified; Z95.1 Presence of aortocoronary bypass graft; Z90.49 Acquired absence of other specified parts of digestive tract; Z95.810 Presence of automatic (implantable) cardiac defibrillator; Z79.899 Other long term (current) drug therapy; Z79.4 Long term (current) use of insulin; Z79.82 Long term (current) use of aspirin; Z79.01 Long term (current) use of anticoagulants
CPT/HCPCS: 36415; 36416; 70450; 71045; 80053; 81003; 81015; 82533; 83605; 84145; 85025; 87040; 87086; 87804; 93005; J0696; J1956; J2405; J3370; J3490; S0028

== ENCOUNTER 2023-05-11 05:44 | Observation (INO) | payer OTHER ==
[2023-05-04 12:38] LABS: Hematocrit 39.3 % (38.8-50.0); Hemoglobin 13.1 g/dL (13.5-17.5); Mean Corpuscular HGB CONC 33.3 g/dL (32.0-36.0); Mean Corpuscular Hemoglobin 31.2 pg (27.0-33.0); Mean Corpuscular Volume 93.6 fl (81.2-95.1); Mean Platelet Volume 9.7 fl (7.4-10.4); Platelet Count 165 10x3/uL (150-450); RBC Distribution Width 12.2 % (11.5-14.5); White Blood Cell (WBC) Count 5.2 10x3/uL (3.5-10.5)
[2023-05-04 12:56] LABS: INR-International Normal Ratio 1.2; Prothrombin Time 12.9 sec (9.5-12.1)
[2023-05-04 13:04] LABS: Anion Gap 13 mmol/L (10-20); BUN (Urea Nitrogen) 13 mg/dL (8.4-25.7); Calc. Creatinine Clearance 62 mL/min (70-130); Calcium 9.1 mg/dL (7.8-10.44); Carbon Dioxide 25 mmol/L (23-31); Chloride 99 mmol/L (98-107); Estimated GFR 69; Glucose 322 mg/dL (83-110); Potassium 4.2 mmol/L (3.5-5.1); Sodium 133 mmol/L (136-145)
[2023-05-11] MEDS ORDERED: Vancomycin (BATCH) 1.5 GRAM/300 ML BAG ONE (06:24)
[2023-05-11] MEDS ORDERED: Gentamicin 80 MG/2 ML VIAL ONE (06:45)
[2023-05-11] MEDS ORDERED: CEFAZOLIN 2 GM VIAL ONE (06:45)
[2023-05-11] MEDS ORDERED: Lidocaine 1% (PF) 30 ML VIAL ONE (06:45)
[2023-05-11] MEDS ORDERED: Propofol 500 MG/50 ML VIAL ONE (07:01)
[2023-05-11] MEDS ORDERED: fentaNYL PF 100 MCG/2 ML SYRINGE ONE (07:01)
[2023-05-11] MEDS ORDERED: Midazolam HCl 2 mg/2 ml Vial ONE (07:35)
[2023-05-11] MEDS ORDERED: ePHEDrine Sulfate 50 MG/10 ML VIAL ONE (07:42)
[2023-05-11] MEDS ORDERED: PHENYLEPHRINE-NS 100 MCG/ML 10 ML SYRINGE ONE (07:42)
[2023-05-11] MEDS ORDERED: Ondansetron PF 4 MG/2 ML Vial ONE (07:42)
[2023-05-11] MEDS ORDERED: Iopamidol 370 76% 100 ML VIAL ONE (09:53)
[2023-05-11] MEDS ORDERED: Acetaminophen 325 MG TAB PO PRN (10:15)
[2023-05-11] MEDS ORDERED: Glucagon 1 MG/ML KIT IM PRN (10:15)
[2023-05-11] MEDS ORDERED: Insulin Regular 300 UNITS/3 ML VIAL SC PRN ×2 (10:15)
[2023-05-11] MEDS ORDERED: Dextrose 5% in Water 1,000 ML IV PRN (10:15)
[2023-05-11] MEDS ORDERED: HYDROcodone/Acetaminophen 5/325 mg Tablet PO PRN ×2 (10:15)
[2023-05-11] MEDS ORDERED: Dextrose 50% Abboject 50 ML SYRINGE IVP PRN (10:15)
[2023-05-11] MEDS ORDERED: fentaNYL 50 mcg/mL 1 mL Vial ONE ×3 (10:24→14:47)
[2023-05-11 15:57] VITALS: BMI 23.8
[2023-05-12 12:10] VITALS: BP 123/71; TEMP 98.5
== END 2023-05-12 11:47 | disposition home or self-care (01) ==
LOC: SDC 05:44 → 2SW 09:55
PROVIDERS: ADMIT Internal Medicine Cardiovascular Disease; ATTEND Internal Medicine Cardiovascular Disease
PROC: 0JH609Z Insertion of Cardiac Resynchronization Defibrillator Pulse Generator into Chest Subcutaneous Tissue and Fascia, Open Approach (ICD-10-PCS; principal; 2023-05-11)
PROC: 02HL0KZ Insertion of Defibrillator Lead into Left Ventricle, Open Approach (ICD-10-PCS; 2023-05-11)
PROC: 02H60KZ Insertion of Defibrillator Lead into Right Atrium, Open Approach (ICD-10-PCS; 2023-05-11)
DX: I11.0 Hypertensive heart disease with heart failure (principal); I50.22 Chronic systolic (congestive) heart failure; I25.5 Ischemic cardiomyopathy; I48.0 Paroxysmal atrial fibrillation; I25.10 Atherosclerotic heart disease of native coronary artery without angina pectoris; E78.5 Hyperlipidemia, unspecified; I65.29 Occlusion and stenosis of unspecified carotid artery; E11.9 Type 2 diabetes mellitus without complications; Z90.89 Acquired absence of other organs; Z90.49 Acquired absence of other specified parts of digestive tract; Z98.890 Other specified postprocedural states; Z95.1 Presence of aortocoronary bypass graft; Z88.8 Allergy status to other drugs, medicaments and biological substances; Z88.5 Allergy status to narcotic agent; Z79.899 Other long term (current) drug therapy; Z79.4 Long term (current) use of insulin
CPT/HCPCS: 33225; 33249; 36416; 71045; 80048; 85027; 85610; 93005; 93010; C1769; C1777; C1882; C1894; C1898; C1900; J1580; J2001; J2250; J2405; J2704; J3010; J3370; Q9967